=== PATIENT | female | born 1985 | race Caucasian/White ===

== ENCOUNTER 2020-04-03 22:09 | Emergency (ER) | payer BC ==
[2020-04-03] MEDS ORDERED: LORazepam 1 MG Tab PO ONE (22:36)
--- NOTE | 2020-04-03 22:42 | EDM.PDOC ---
ED HPI GENERAL MEDICAL PROBLEM - General Chief Complaint: Allergic Reaction Stated Complaint: ALLERGIC REACTION Time Seen by Provider: 04/03/20 22:16 Source of Information: Reports: Patient History Limitations: Reports: No Limitations - History of Present Illness INITIAL COMMENTS - FREE TEXT/NARRATIVE: Ms. Nielsen is a pleasant 35-year-old woman who now presents the ED concerned that she may be having an allergic reaction. She states that an IUD was placed this past 03/31/2020, then removed the following day, 04/01/2020, due to a "bad reaction" to it. She was prescribed prophylactic doxycycline to prevent an associated infection. She took her first dose around 7:00 this morning, then, she states that she subsequently developed the sensation of throat tightness and tingling of her mouth and tongue. Her symptoms were relatively mild, therefore she took her second dose around 21:00 tonight, after which her throat tightness worsened, she felt like her airway was collapsing, and she became dyspneic with rapid palpitations. She states that her current symptoms are similar to prior allergic reactions to medications that she has had, including to penicillin, cephalexin, ciprofloxacin, and shellfish. She states that she has never had doxycycline prior to this morning. She has not had any pruritus or urticaria. While she feels dyspneic, she has not been wheezing. She did not take any [id number] or home remedies prior to coming to the ED. Here in the ED, the patient is found to be hemodynamically stable, afebrile, saturating 100% on room air. She appears to be quite anxious and hyperventilating. Prior to this morning, the patient denies having a recent fever, chills, sore throat, ear pain, nasal or sinus congestion, cough, dyspnea, chest pain, palpitations, nausea, vomiting, constipation, diarrhea, abdominal pain, urinary symptoms, recent weight gain or weight loss, recent bloody bowel movements or black bowel movements, recent joint aches, headaches, or rashes. The patient's PCP is Dr. Lillian Aquino. She has not received an influenza vaccine this season, and declined an offer to receive one here in the ED. - Related Data Allergies Allergy/AdvReac Type Severity Reaction Status Date / Time bupropion [From Wellbutrin] Allergy Hives Verified 04/03/20 22:14 cephalexin Allergy Hives Verified 04/03/20 22:14 ciprofloxacin [From Cipro] Allergy Hives Verified 04/03/20 22:14 escitalopram [From Lexapro] Allergy Hives Verified 04/03/20 22:14 nitrofurantoin Allergy Hives Verified 04/03/20 22:14 [From Macrobid] Penicillins Allergy Hives Verified 04/03/20 22:14 shellfish derived Allergy Anaphylactic Verified 04/03/20 22:14 Shock Home Meds: Home Meds Brimonidine Tartrate/Timolol [Combigan Eye Drops] 1 drop OP ASDIRECTED 04/03/20 [History] EPINEPHrine [Epipen] 0.3 mg IM ASDIRECTED PRN 04/03/20 [History] Past Medical History HEENT History: Reports: Other (See Below) (Corneal disease) - Past Surgical History HEENT Surgical History: Reports: Eye Surgery (Right cornea transplant), Oral Surgery (dental extractions) Social & Family History - Tobacco Use Tobacco Use Status *Q: Never Tobacco User - Alcohol Use Alcohol Use History: Yes Alcohol Use Frequency: Rarely - Recreational Drug Use Recreational Drug Use: No - Living Situation & Occupation Living situation: Reports: , Alone Occupation: Employed (Director Internal Communications) ED ROS GENERAL - Review of Systems Review Of Systems: Comprehensive ROS is negative, except as noted in HPI. ED EXAM, GENERAL - Physical Exam Exam: See Below Exam Limited By: No Limitations General Appearance: Alert, WD/WN, Anxious Eye Exam: Bilateral Eye: EOMI, Normal Inspection Ears: Normal External Exam, Normal Canal, Hearing Grossly Normal, Normal TMs Nose: Normal Inspection, Normal Mucosa, No Blood Throat/Mouth: Normal Inspection, Normal Lips (no swelling), Normal Teeth, Normal Gums, Normal Oropharynx (no uvular swelling), Normal Voice, No Airway Compromise Head: Atraumatic, Normocephalic Neck: Normal Inspection, Supple, Non-Tender, Full Range of Motion. No: Lymphadenopathy (L), Lymphadenopathy (R) Respiratory/Chest: No Respiratory Distress, Lungs Clear, Normal Breath Sounds, No Accessory Muscle Use. No: Decreased Breath Sounds, Crackles, Rhonchi, Wheezing, Stridor, Prolonged Expiration Cardiovascular: Normal Peripheral Pulses, Regular Rate, Rhythm, No Edema, No Gallop, No JVD, No Murmur, No Rub Peripheral Pulses: 3+: Radial (L), Radial (R) GI/Abdominal: Normal Bowel Sounds, Soft, Non-Tender, No Organomegaly, No Diste ntion, No Abnormal Bruit, No Mass Back Exam: Normal Inspection, Full Range of Motion, NT Extremities: Normal Inspection, Normal Range of Motion, No Pedal Edema, Normal Capillary Refill Neurological: Alert, Oriented, Normal Cognition, No Motor/Sensory Deficits Psychiatric: Anxious Skin Exam: Warm, Dry, Intact, Normal Color, No Rash Course - Vital Signs Last Recorded V/S: Last Vital Signs Temp 36.6 C 04/03/20 22:14 Pulse 100 04/03/20 22:14 Resp 17 04/03/20 22:14 BP 135/89 04/03/20 22:14 Pulse Ox 100 04/03/20 22:14 - Orders/Labs/Meds Orders: Active Orders 24 hr Category Date Time Status LORazepam [Ativan] Med 04/03/20 22:36 Once 1 mg PO ONETIME ONE Medication Orders Lorazepam (Ativan) 1 mg PO ONETIME ONE Stop: 04/03/20 22:37 Meds: Medications Generic Name Dose Route Start Last Admin Trade Name Freq PRN Reason Stop Dose Admin Lorazepam 1 mg 04/03/20 22:36 Ativan PO 04/03/20 22:37 ONETIME ONE - Re-Assessments/Exams Free Text/Narrative Re-Assessment/Exam: 04/03/20 22:37 The patient is not having an allergic reaction. I explained to her that anaphylaxis is a clinical diagnosis, made by objective physical findings, such as urticaria, uvular or lip swelling, along with wheezing on auscultation. The patient has none of these. I explained to her that while I understand that a genuine allergic reaction is very unpleasant (I myself have a severe reaction to peanuts, which I have experienced countless times over my life), but the patient is experiencing today is not an allergic reaction, rather, I suspect that she is concerned that she might have an allergic reaction to doxycycline (which, in the patient's case, is not possible, since her first dose of doxycycline ever, in her life, was this morning), and that she became anxious as a result. This is buttressed by the fact that the patient's oxygen saturation is 100% on room air, indicating at least some degree of hyperventilation. The patient is not actually experiencing an allergic reaction to doxycycline, I recommended that she continue to take it as prescribed. The patient expressed understanding in my diagnosis, but asked what can be done about her current symptoms. She will be given a single dose of oral lorazepam prior to being discharged home. Departure - Departure Time of Disposition: 22:41 Disposition: Home, Self-Care 01 Condition: Good Clinical Impression: Anxiety reaction - Discharge Information *PRESCRIPTION DRUG MONITORING PROGRAM REVIEWED*: Not Applicable *COPY OF PRESCRIPTION DRUG MONITORING REPORT IN PATIENT LESLI: Not Applicable Referrals: Lillian Aquino MD [Primary Care Provider] - Additional Instructions: You were seen in the emergency room after developing the sensation of your throat swelling, tingling and numbness of your mouth and tongue, the sensation that your airway was collapsing, shortness of breath, and rapid palpitations after beginning doxycycline this morning. Based on your history and physical examination, you ARE NOT experiencing an allergic reaction, rather, what you are likely experiencing is symptoms of anxiety over the concerned that you are suffering an allergic reaction to doxycycline. You were given a single dose of Ativan in the ER, which should help to calm your nerves. Because you are not actually allergic to doxycycline, we recommend that you continue the antibiotic as prescribed. If any other problems, please do not hesitate to return to the ER. Sepsis Event Note (ED) - Evaluation Sepsis Screening Result: No Definite Risk - Focused Exam Vital Signs: Vital Signs Temp Pulse Resp BP Pulse Ox 04/03/20 22:14 36.6 C 100 17 135/89 100 - My Orders Last 24 Hours: My Active Orders 04/03/20 22:36 LORazepam [Ativan] 1 mg PO ONETIME ONE - Assessment/Plan Last 24 Hours: My Active Orders 04/03/20 22:36 LORazepam [Ativan] 1 mg PO ONETIME ONE
== END 2020-04-03 22:49 | disposition home or self-care (01) ==
LOC: JD.ED 22:09
DX: F41.1 Generalized anxiety disorder (principal); Z88.8 Allergy status to other drugs, medicaments and biological substances; Z88.1 Allergy status to other antibiotic agents; Z88.0 Allergy status to penicillin; Z91.013 Allergy to seafood
CPT/HCPCS: 99283; A9270